=== PATIENT | female | born 1930 | race Caucasian/White ===

== ENCOUNTER 2018-03-11 08:00 | Day surgery (SDC) | payer MEDICARE, MEDICAID ==
[2018-03-11] MEDS ORDERED: PROPARACAINE 0.5% OPHTH SOL 15 ML BTTL ONE (08:33)
[2018-03-11] MEDS ORDERED: TROP 1%/CYCLOPEN 1%/PHENYL 2% DROPS ONE (08:33)
== END 2018-03-11 12:06 | disposition home or self-care (01) ==
LOC: AMB 08:00
PROVIDERS: ATTEND Ophthalmology
DX: H26.492 Other secondary cataract, left eye (principal)